=== PATIENT | female | born 1975 | race Caucasian/White ===

== ENCOUNTER 2021-10-27 15:24 | Emergency (ER) | payer OTHER, BC ==
[2021-10-29 15:14] LABS: HIV AB/P24 AG SCREEN Non Reactive (Non Reactive)
== END 2021-10-27 17:03 | disposition home or self-care (01) ==
LOC: JP.ED 15:24
DX: S69.92XA Unspecified injury of left wrist, hand and finger(s), initial encounter (principal); Z88.6 Allergy status to analgesic agent; Z79.899 Other long term (current) drug therapy; W27.3XXA Contact with needle (sewing), initial encounter
CPT/HCPCS: 36415; 86317; 86803; 87389; 87449; 99281; 99283